=== PATIENT | female | born 1975 | race African-American/Black ===

== ENCOUNTER 2023-09-14 02:39 | Emergency (ER) | payer OTHER, MEDICAID ==
[~2023-09-14] VITALS: Ht 167.6 cm; Wt 64.0 kg
[2023-09-14 02:50] VITALS: O2SAT 99
[2023-09-14] MEDS: SODIUM CHLORIDE 0.9% 1,000 ML IV ONE (03:45)
[2023-09-14 05:04] LABS: BASOPHILS % 0.7 % (0.0-2.0); DIFFERENTIAL COMMENT 0; EOSINOPHILS % 1.3 % (0.0-5.0); HEMATOCRIT. 26.7 % (36.0-48.0); HEMOGLOBIN. 8.1 g/dL (12.0-16.0); LYMPHOCYTES % 15.6 % (20.0-50.0); MEAN CORPUSCULAR HEMOGLOBIN 22.5 pg (28.0-32.0); MEAN CORPUSCULAR HGB CONC 30.4 g/dL (31.0-37.0); MEAN CORPUSCULAR VOLUME 73.9 fL (81.0-99.0); MEAN PLATELET VOLUME 7.3 fl (7.4-10.4); MONOCYTES % 5.9 % (2.0-8.0); NEUTROPHILS % 76.5 % (40.0-76.0); PLATELET 152 x1000/uL (130-400); RED BLOOD CELL COUNT 3.61 mill/uL (4.2-5.4); RED CELL DISTRIBUTION WIDTH 20.2 % (11.6-14.6); WHITE BLOOD COUNT 9.2 x1000/uL (4.5-11.0)
[2023-09-14 05:15] LABS: CHLORIDE 111 mEq/L (98-107); POTASSIUM 3.9 mEq/L (3.5-5.1); SODIUM 141 mEq/L (136-145)
[2023-09-14 05:16] LABS: CARBON DIOXIDE 25 mEq/L (21-32)
[2023-09-14 05:17] LABS: CALCIUM 9.2 mg/dL (8.7-10.4)
[2023-09-14 05:21] LABS: CREATININE 0.7 mg/dL (0.6-1.0); GLUCOSE 102 mg/dL (70-105); UREA NITROGEN BLOOD 11 mg/dL (9-23)
[2023-09-14] MEDS ORDERED: NAPR-1164 MT (05:31)
[2023-09-14 05:33] LABS: B-HCG QUANTITATIVE < 1 mIU/mL (<3)
[2023-09-14] MEDS: ACETAMINOPHEN 1000MG/100ML 100 ML IV ONE (05:36)
[2023-09-14 05:44] LABS: HCG SCREEN NEGATIVE
[2023-09-14 08:42] VITALS: BP 128/63; PULSE 57; RESP 18; TEMP 98
== END 2023-09-14 08:52 | disposition home or self-care (01) ==
LOC: ER 02:39
DX: D25.9 Leiomyoma of uterus, unspecified (principal)
CPT/HCPCS: 99285; 96365; 96366; 76830; 76856; 96361; 80048; 84703; 84702; 85025; 86850; 86900; 86901; 36415; J7030; J0131

== ENCOUNTER 2024-07-20 07:22 | Emergency (ER) | payer MEDICAID, OTHER ==
[~2024-07-20] VITALS: Ht 175.3 cm; Wt 63.0 kg
[~2024-07-20 07:22] MED LIST: NAPR-1164 MT
[2024-07-20 07:58] VITALS: O2SAT 100
[2024-07-20 08:28] VITALS: BP 142/64; PULSE 70; RESP 18; TEMP 36.9; O2SAT 99
== END 2024-07-20 08:29 | disposition home or self-care (01) ==
LOC: ER 08:26
DX: R68.89 Other general symptoms and signs (principal)
CPT/HCPCS: 99281